=== PATIENT | male | born 1965 | race Caucasian/White ===

== ENCOUNTER 2018-01-02 16:01 | Emergency (ER) | payer OTHER ==
[~2018-01-02] VITALS: Ht 172.7 cm; Wt 86.4 kg
[~2018-01-02 16:01] MED LIST: DIVA500T52 PO; LURA40 PO; TRIH2TAB3 PO
[2018-01-02] MEDS ORDERED: PROP10TA73 PO (16:30)
[2018-01-02] MEDS ORDERED: AMLO-512 PO (16:30)
[2018-01-02] MEDS ORDERED: VENL50TA44 PO (16:30)
[2018-01-02 19:00] LABS: BASOPHILS % (AUTO) 0.6 % (0.0-2.0); EOSINOPHILS % (AUTO) 2.9 % (1.0-6.0); HEMATOCRIT 44.4 % (41-53); HEMOGLOBIN 15.6 g/dL (13.5-17.5); LYMPHOCYTES # (AUTO) 1.6 K/uL (1.0-4.8); LYMPHOCYTES % (AUTO) 16.4 % (22.0-44.0); MEAN CORPUSCULAR HEMOGLOBIN 31.1 pg (26.0-34.0); MEAN CORPUSCULAR HGB CONC 35.2 G/dL (31.0-37.0); MEAN CORPUSCULAR VOLUME 89 fL (80-100); MONOCYTES % (AUTO) 10.3 % (2.0-9.0); NEUTROPHILS # (AUTO) 6.9 K/uL (1.8-7.7); NEUTROPHILS % (AUTO) 69.8 % (40.0-70.0); PLATELET COUNT (AUTO) 251 K/uL (150-450); RED BLOOD CELL COUNT(AUTO) 5.02 MIL/uL (4.50-5.90); RED CELL DISTRIBUTION WIDTH 12.4 % (11.5-14.5)
[2018-01-02 19:08] LABS: ANION GAP 10 mmol/L (8-16); CALCIUM, TOTAL 8.5 mg/dL (8.8-10.5); CARBON DIOXIDE 27 mmol/L (22-29); CHLORIDE 100 mmol/L (98-107); GLOMERULAR FILTR. RATE CALC 58 mL/min (>60); GLUCOSE,RANDOM 121 mg/dL (70-110); POTASSIUM 4.1 mmol/L (3.5-5.1); SODIUM SERUM 137 mmol/L (136-145); UREA NITROGEN, BLOOD 20 mg/dL (7-18)
[2018-01-02 19:15] LABS: ALANINE AMINOTRANSFERASE 65 U/L (12-78); ALBUMIN 3.8 g/dL (3.4-5.0); ALKALINE PHOSPHATASE 90 U/L (46-116); ASPARTATE AMINOTRANSFERASE 59 U/L (15-37); BILIRUBIN,TOTAL 0.7 mg/dL (0.1-1.0); TOTAL PROTEIN, SERUM 7.5 g/dL (6.4-8.2)
[2018-01-02 22:08] LABS: AMPHET/METH SCREEN,URINE POSITIVE (NEGATIVE); BARBITURATE SCREEN, URINE NEGATIVE (NEGATIVE); BENZODIAZEPINES SCREEN,URINE NEGATIVE (NEGATIVE); CANNABINOID SCREEN,URINE NEGATIVE (NEGATIVE); COCAINE SCREEN,URINE NEGATIVE (NEGATIVE); METHADONE SCREEN, URINE NEGATIVE (NEGATIVE); OPIATE SCREEN,URINE NEGATIVE (NEGATIVE)
[2018-01-02 22:09] LABS: PHENCYCLIDINE SCREEN,URINE NEGATIVE (NEGATIVE)
[2018-01-03] MEDS ORDERED: ZIPRASIDONE HCL 20 MG CAPSULE PO ONE (02:00)
[2018-01-03] MEDS ORDERED: ZIPRASIDONE HCL 40 MG CAPSULE PO ONE (02:00)
[2018-01-03] MEDS: OLANZapine 5 MG RAPDIS TABLET PO ONE ×2 (02:14→02:19)
[2018-01-03] MEDS: VENLAFAXINE HCL 50 MG TABLET PO ONE ×2 (02:14→02:19)
[2018-01-03 03:27] VITALS: BP 129/73
== END 2018-01-03 03:47 | disposition home or self-care (01) ==
LOC: EMS 16:02
DX: F20.0 Paranoid schizophrenia (principal); F11.90 Opioid use, unspecified, uncomplicated; F14.90 Cocaine use, unspecified, uncomplicated; F12.90 Cannabis use, unspecified, uncomplicated; F15.90 Other stimulant use, unspecified, uncomplicated
CPT/HCPCS: 36415; 80053; 80307; 85025; 99284; G0480

== ENCOUNTER 2018-06-30 16:59 | Inpatient (IN) | payer MEDICAID ==
[~2018-06-30] VITALS: Ht 172.7 cm; Wt 86.8 kg
[~2018-06-30 16:59] MED LIST changes: +AMLO-512 PO; +PROP10TA73 PO; +VENL50TA44 PO
[2018-06-30 21:45] VITALS: BP 137/92
[2018-06-30] MEDS ORDERED: ZOLPIDEM TARTRATE 10 MG TABLET PO PRN (22:00)
[2018-06-30] MEDS ORDERED: HALOPERIDOL 5 MG TABLET PO PRN (22:00)
[2018-06-30] MEDS ORDERED: PNEUMOCOCCAL VACCINE POLYVALENT 0.5 ML VIAL [PPSV23] IM ONE (22:30)
[2018-07-01 00:13] VITALS: BP 119/82
[2018-07-01] MEDS ORDERED: CloNIDine HCL 0.1 MG TABLET PO PRN (06:45)
[2018-07-01] MEDS ORDERED: IBUPROFEN 400 MG TABLET PO PRN (06:45)
[2018-07-01] MEDS ORDERED: ONDANSETRON HCL 4 MG TABLET PO PRN (06:45)
[2018-07-01] MEDS ORDERED: ACETAMINOPHEN 325 MG TABLET PO PRN (06:45)
[2018-07-01] MEDS ORDERED: NICOTINE 14 MG/24 HOUR PATCH TD PRN (06:45)
[2018-07-01] MEDS ORDERED: ALBUTEROL SULFATE HFA 90 MCG/PUFF 8 GM INHALER IH PRN (06:45)
[2018-07-01] MEDS ORDERED: LOPERAMIDE HCL 2 MG CAPSULE PO PRN (06:45)
[2018-07-01] MEDS ORDERED: MAG HYDROX/AL HYDROX/SIMETH ES 30 ML SUSPENSION UDCUP PO PRN (06:45)
[2018-07-01] MEDS ORDERED: DOCUSATE SODIUM 100 MG CAPSULE PO PRN (06:45)
[2018-07-01] MEDS ORDERED: PETROLATUM,WHITE 71 GM JELLY TP PRN (06:45)
[2018-07-01] MEDS ORDERED: GuaiFENesin/D-METHORPHAN [SUGAR-FREE] 200-20MG/10 ML SYRUP UDCUP PO PRN (06:45)
[2018-07-01 07:31] LABS: BASOPHILS % (AUTO) 0.4 % (0.0-2.0); EOSINOPHILS % (AUTO) 2.5 % (1.0-6.0); HEMATOCRIT 43.1 % (41-53); LYMPHOCYTES # (AUTO) 1.6 K/uL (1.0-4.8); LYMPHOCYTES % (AUTO) 27.6 % (22.0-44.0); MEAN CORPUSCULAR HEMOGLOBIN 31.7 pg (26.0-34.0); MEAN CORPUSCULAR HGB CONC 34.7 G/dL (31.0-37.0); MEAN CORPUSCULAR VOLUME 91 fL (80-100); MONOCYTES # (AUTO) 0.7 K/uL (0.1-1.0); MONOCYTES % (AUTO) 11.9 % (2.0-9.0); NEUTROPHILS # (AUTO) 3.3 K/uL (1.8-7.7); NEUTROPHILS % (AUTO) 57.6 % (40.0-70.0); PLATELET COUNT (AUTO) 206 K/uL (150-450); RED BLOOD CELL COUNT(AUTO) 4.71 MIL/uL (4.50-5.90); RED CELL DISTRIBUTION WIDTH 12.7 % (11.5-14.5)
[2018-07-01 08:05] VITALS: BP 112/74
[2018-07-01 08:17] LABS: HEMOGLOBIN A1C 5.2 % (4.5-6.2)
[2018-07-01 08:18] LABS: ALANINE AMINOTRANSFERASE 34 U/L (12-78); ALBUMIN 3.7 g/dL (3.4-5.0); ALKALINE PHOSPHATASE 88 U/L (46-116); ANION GAP 5 mmol/L (8-16); ASPARTATE AMINOTRANSFERASE 34 U/L (15-37); BILIRUBIN,TOTAL 0.4 mg/dL (0.1-1.0); CALCIUM, TOTAL 8.7 mg/dL (8.8-10.5); CARBON DIOXIDE 31 mmol/L (22-29); CHLORIDE 105 mmol/L (98-107); CHOL/HDL RATIO 3.3 (4.2-7.3); CHOLESTEROL 130 mg/dL (131-200); CREATININE 1.24 mg/dL (0.60-1.30); FREE T4 (FREE THYROXINE) 0.95 ng/dL (0.76-1.46); GLOMERULAR FILTR. RATE CALC > 60 mL/min (>60); GLUCOSE,RANDOM 100 mg/dL (70-110); HDL CHOLESTEROL 39 mg/dL (40-60); LDL CHOL (CALC.) 77 mg/dL (0-130); POTASSIUM 4.4 mmol/L (3.5-5.1); SODIUM SERUM 141 mmol/L (136-145); THYROID STIMULATING HORMONE 1.75 uIU/mL (0.36-3.74); TOTAL PROTEIN, SERUM 6.3 g/dL (6.4-8.2); TRIGLYCERIDES 71 mg/dL (15-150); UREA NITROGEN, BLOOD 19 mg/dL (7-18)
[2018-07-01] MEDS: VENLAFAXINE HCL 150 MG ER CAPSULE PO SCH (12:00)
[2018-07-01 16:09] VITALS: BP 128/67
[2018-07-01] MEDS: DIVALPROEX SODIUM 500 MG ER TABLET PO SCH (17:08)
[2018-07-01] MEDS: LORazepam 2 MG TABLET PO PRN (17:08)
[2018-07-01] MEDS: ZIPRASIDONE HCL 40 MG CAPSULE PO SCH (17:08)
[2018-07-02 05:27] VITALS: BP 122/69
[2018-07-02] MEDS: ZIPRASIDONE HCL 40 MG CAPSULE PO SCH ×2 (06:36→16:25)
[2018-07-02 08:07] VITALS: BP 110/64
[2018-07-02] MEDS: VENLAFAXINE HCL 150 MG ER CAPSULE PO SCH (08:41)
[2018-07-02] MEDS: LORazepam 2 MG TABLET PO PRN ×2 (08:41→16:25)
[2018-07-02] MEDS: DIVALPROEX SODIUM 500 MG ER TABLET PO SCH ×2 (08:41→16:25)
[2018-07-02 16:02] VITALS: BP 126/69
[2018-07-03] MEDS: ZIPRASIDONE HCL 40 MG CAPSULE PO SCH (06:39)
[2018-07-03 07:09] VITALS: BP 122/75
[2018-07-03 08:01] VITALS: BP 138/81
[2018-07-03] MEDS: VENLAFAXINE HCL 150 MG ER CAPSULE PO SCH (09:00)
[2018-07-03] MEDS: DIVALPROEX SODIUM 500 MG ER TABLET PO SCH ×2 (09:00→17:00)
[2018-07-03] MEDS: MENTHOL/CAMPHOR/DIMETH/PHENOL 10 GM OINTMENT TP PRN (09:06)
[2018-07-03 16:02] VITALS: BP 124/73
[2018-07-03] MEDS: ZIPRASIDONE HCL 20 MG CAPSULE PO SCH (17:36)
[2018-07-04 05:22] VITALS: BP 122/76
[2018-07-04] MEDS: ZIPRASIDONE HCL 20 MG CAPSULE PO SCH ×2 (06:29→16:07)
[2018-07-04 08:08] LABS: BASOPHILS % (AUTO) 0.4 % (0.0-2.0); EOSINOPHILS % (AUTO) 2.2 % (1.0-6.0); HEMOGLOBIN 15.3 g/dL (13.5-17.5); LYMPHOCYTES # (AUTO) 2.2 K/uL (1.0-4.8); LYMPHOCYTES % (AUTO) 33.7 % (22.0-44.0); MEAN CORPUSCULAR HEMOGLOBIN 31.9 pg (26.0-34.0); MEAN CORPUSCULAR HGB CONC 34.7 G/dL (31.0-37.0); MEAN CORPUSCULAR VOLUME 92 fL (80-100); MONOCYTES # (AUTO) 0.4 K/uL (0.1-1.0); MONOCYTES % (AUTO) 6.7 % (2.0-9.0); NEUTROPHILS # (AUTO) 3.8 K/uL (1.8-7.7); PLATELET COUNT (AUTO) 231 K/uL (150-450); RED BLOOD CELL COUNT(AUTO) 4.79 MIL/uL (4.50-5.90); RED CELL DISTRIBUTION WIDTH 12.6 % (11.5-14.5)
[2018-07-04 08:22] LABS: ALANINE AMINOTRANSFERASE 27 U/L (12-78); ALBUMIN 3.5 g/dL (3.4-5.0); ALKALINE PHOSPHATASE 80 U/L (46-116); ANION GAP 3 mmol/L (8-16); ASPARTATE AMINOTRANSFERASE 24 U/L (15-37); BILIRUBIN,TOTAL 0.3 mg/dL (0.1-1.0); CALCIUM, TOTAL 8.3 mg/dL (8.8-10.5); CARBON DIOXIDE 34 mmol/L (22-29); CHLORIDE 106 mmol/L (98-107); CREATININE 1.17 mg/dL (0.60-1.30); GLOMERULAR FILTR. RATE CALC > 60 mL/min (>60); GLUCOSE,RANDOM 87 mg/dL (70-110); POTASSIUM 5.3 mmol/L (3.5-5.1); SODIUM SERUM 143 mmol/L (136-145); TOTAL PROTEIN, SERUM 6.5 g/dL (6.4-8.2); UREA NITROGEN, BLOOD 15 mg/dL (7-18); VALPROIC ACID < 3 mcg/mL (50-100)
[2018-07-04] MEDS: VENLAFAXINE HCL 75 MG ER CAPSULE PO SCH (08:38)
[2018-07-04] MEDS: DIVALPROEX SODIUM 500 MG ER TABLET PO SCH ×3 (08:49→16:11)
[2018-07-04 09:31] VITALS: BP 124/59
[2018-07-04] MEDS ORDERED: SODIUM POLYSTYRENE SULFONATE 15 GM/60 ML SUSPENSION BOTTLE PR ONE (12:30)
[2018-07-04 16:13] VITALS: BP 139/78
[2018-07-05 06:38] VITALS: BP 116/62
[2018-07-05] MEDS: ZIPRASIDONE HCL 20 MG CAPSULE PO SCH ×2 (07:05→17:02)
[2018-07-05 08:03] VITALS: BP 118/76
[2018-07-05] MEDS: DIVALPROEX SODIUM 500 MG ER TABLET PO SCH ×2 (08:10→17:00)
[2018-07-05] MEDS: VENLAFAXINE HCL 75 MG ER CAPSULE PO SCH (08:10)
[2018-07-05 08:36] LABS: CALCIUM, TOTAL 8.3 mg/dL (8.8-10.5); CREATININE 1.27 mg/dL (0.60-1.30); POTASSIUM 4.4 mmol/L (3.5-5.1)
[2018-07-05] MEDS: MENTHOL/CAMPHOR/DIMETH/PHENOL 10 GM OINTMENT TP PRN (09:40)
[2018-07-05 16:21] VITALS: BP 134/89
[2018-07-05] MEDS: LORazepam 2 MG TABLET PO PRN (17:02)
[2018-07-06] MEDS: ZIPRASIDONE HCL 20 MG CAPSULE PO SCH ×2 (06:43→16:07)
[2018-07-06 06:51] VITALS: BP 127/84
[2018-07-06 08:02] VITALS: BP 122/81
[2018-07-06] MEDS: VENLAFAXINE HCL 75 MG ER CAPSULE PO SCH (08:30)
[2018-07-06] MEDS: DIVALPROEX SODIUM 500 MG ER TABLET PO SCH ×2 (08:39→17:00)
[2018-07-06] MEDS: LORazepam 2 MG TABLET PO PRN (16:16)
[2018-07-06 16:22] VITALS: BP 140/95
[2018-07-07 05:58] VITALS: BP 120/62
[2018-07-07] MEDS: ZIPRASIDONE HCL 20 MG CAPSULE PO SCH ×2 (06:15→17:06)
[2018-07-07 08:02] VITALS: BP 132/70
[2018-07-07] MEDS: VENLAFAXINE HCL 75 MG ER CAPSULE PO SCH (08:23)
[2018-07-07] MEDS: DIVALPROEX SODIUM 500 MG ER TABLET PO SCH ×2 (08:36→17:00)
[2018-07-07 16:07] VITALS: BP 135/74
[2018-07-07] MEDS: LORazepam 2 MG TABLET PO PRN (17:06)
[2018-07-08 06:42] VITALS: BP 128/77
[2018-07-08] MEDS: ZIPRASIDONE HCL 20 MG CAPSULE PO SCH (06:44)
[2018-07-08 08:02] VITALS: BP 119/65
[2018-07-08] MEDS: VENLAFAXINE HCL 75 MG ER CAPSULE PO SCH (08:31)
[2018-07-08] MEDS: DIVALPROEX SODIUM 500 MG ER TABLET PO SCH (08:31)
[2018-07-08] MEDS ORDERED: VENL75CA55 PO ×2 (09:23→09:39)
[2018-07-08] MEDS ORDERED: ZIPR20CA2 PO (09:23)
[2018-07-08] MEDS ORDERED: ZIPR60CA2 PO (09:40)
== END 2018-07-08 13:36 | disposition home or self-care (01) | DRG 750 ==
LOC: B3A 22:01
PROVIDERS: ADMIT Psychiatry & Neurology Psychiatry; ATTEND Psychiatry & Neurology Psychiatry
DX: F25.0 Schizoaffective disorder, bipolar type (principal); E87.5 Hyperkalemia; B18.2 Chronic viral hepatitis C; I10 Essential (primary) hypertension; K59.00 Constipation, unspecified; F19.90 Other psychoactive substance use, unspecified, uncomplicated; Z79.899 Other long term (current) drug therapy; F10.10 Alcohol abuse, uncomplicated; Z71.41 Alcohol abuse counseling and surveillance of alcoholic; Z91.19 Patient's noncompliance with other medical treatment and regimen; F17.200 Nicotine dependence, unspecified, uncomplicated
CPT/HCPCS: 83036; 84439; 84443; 87081; 90686

== ENCOUNTER 2018-12-16 09:12 | Emergency (ER) | payer MEDICAID, OTHER ==
[~2018-12-16] VITALS: Ht 172.7 cm; Wt 93.6 kg
[~2018-12-16 09:12] MED LIST changes: -AMLO-512 PO; -DIVA500T52 PO; -LURA40 PO; -PROP10TA73 PO; -TRIH2TAB3 PO; -VENL50TA44 PO; +VENL75CA55 PO; +ZIPR20CA2 PO; +ZIPR60CA2 PO
[2018-12-16] MEDS ORDERED: SODIUM CHLORIDE 0.9% 1,000 ML IV ONE (10:00)
[2018-12-16 11:26] VITALS: BP 152/78
== END 2018-12-16 11:32 | disposition home or self-care (01) ==
LOC: EMS 09:14
DX: R76.11 Nonspecific reaction to tuberculin skin test without active tuberculosis (principal); F20.9 Schizophrenia, unspecified; F19.20 Other psychoactive substance dependence, uncomplicated; F12.90 Cannabis use, unspecified, uncomplicated; F14.90 Cocaine use, unspecified, uncomplicated; F11.90 Opioid use, unspecified, uncomplicated

== ENCOUNTER 2019-09-21 15:36 | Inpatient (IN) | payer MEDICAID, OTHER ==
[~2019-09-21] VITALS: Ht 172.7 cm; Wt 84.3 kg
[~2019-09-21 15:36] MED LIST changes: -ZIPR60CA2 PO
[2019-09-21] MEDS ORDERED: HALOPERIDOL LACTATE 5 MG/ML VIAL IM ONE (16:30)
[2019-09-21] MEDS ORDERED: DiphenhydrAMINE HCL 50 MG/ML VIAL IM ONE (16:30)
[2019-09-21] MEDS ORDERED: LORazepam 2 MG/ML VIAL IM ONE (16:30)
[2019-09-21 17:31] LABS: BASOPHILS % (AUTO) 0.4 % (0.0-2.0); EOSINOPHILS % (AUTO) 0 % (1.0-6.0); HEMATOCRIT 42.9 % (41-53); HEMOGLOBIN 14.5 g/dL (13.5-17.5); LYMPHOCYTES # (AUTO) 0.7 K/uL (1.0-4.8); LYMPHOCYTES % (AUTO) 6.7 % (22.0-44.0); MEAN CORPUSCULAR HGB CONC 33.7 G/dL (31.0-37.0); MEAN CORPUSCULAR VOLUME 92 fL (80-100); MONOCYTES # (AUTO) 0.2 K/uL (0.1-1.0); MONOCYTES % (AUTO) 1.9 % (2.0-9.0); NEUTROPHILS # (AUTO) 9.3 K/uL (1.8-7.7); PLATELET COUNT (AUTO) 197 K/uL (150-450); RED BLOOD CELL COUNT(AUTO) 4.67 MIL/uL (4.50-5.90); RED CELL DISTRIBUTION WIDTH 13.2 % (11.5-14.5)
[2019-09-21 17:41] LABS: ANION GAP 9 mmol/L (8-16); CALCIUM, TOTAL 7.9 mg/dL (8.8-10.5); CARBON DIOXIDE 26 mmol/L (22-29); CHLORIDE 101 mmol/L (98-107); CREATININE 1.02 mg/dL (0.60-1.30); GLOMERULAR FILTR. RATE CALC > 60 mL/min (>60); GLUCOSE,RANDOM 120 mg/dL (70-110); POTASSIUM 3.7 mmol/L (3.5-5.1); SODIUM SERUM 136 mmol/L (136-145); UREA NITROGEN, BLOOD 15 mg/dL (7-18)
[2019-09-21 17:47] LABS: ALANINE AMINOTRANSFERASE 39 U/L (12-78); ALBUMIN 3.6 g/dL (3.4-5.0); ALKALINE PHOSPHATASE 84 U/L (46-116); ASPARTATE AMINOTRANSFERASE 32 U/L (15-37); BILIRUBIN,TOTAL 0.3 mg/dL (0.1-1.0); TOTAL PROTEIN, SERUM 6.2 g/dL (6.4-8.2)
[2019-09-21 18:16] LABS: AMPHET/METH SCREEN,URINE NEGATIVE (NEGATIVE); BARBITURATE SCREEN, URINE NEGATIVE (NEGATIVE); BENZODIAZEPINES SCREEN,URINE NEGATIVE (NEGATIVE); CANNABINOID SCREEN,URINE NEGATIVE (NEGATIVE); COCAINE SCREEN,URINE NEGATIVE (NEGATIVE); METHADONE SCREEN, URINE NEGATIVE (NEGATIVE); OPIATE SCREEN,URINE NEGATIVE (NEGATIVE); PHENCYCLIDINE SCREEN,URINE NEGATIVE (NEGATIVE)
[2019-09-21] MEDS ORDERED: LORazepam 2 MG TABLET PO PRN (20:15)
[2019-09-21] MEDS ORDERED: HALOPERIDOL 5 MG TABLET PO PRN (20:15)
[2019-09-21] MEDS ORDERED: ZOLPIDEM TARTRATE 10 MG TABLET PO PRN (20:15)
[2019-09-21] MEDS ORDERED: ZIPR60CA2 PO (20:21)
[2019-09-22 00:23] VITALS: BP 129/76
[2019-09-22] MEDS ORDERED: INFLUENZA VIRUS VACCINE QVS 2019-20 (3YR+)/PF 60 MCG/0.5 ML SYRINGE IM ONE (01:30)
[2019-09-22 08:27] LABS: CHOL/HDL RATIO 3.4 (4.2-7.3)
[2019-09-22 11:00] VITALS: BP 124/86
[2019-09-22 16:30] VITALS: BP_SYST 122; BP_SYST 128; BP_DIAS 86
[2019-09-22 21:16] VITALS: BP 123/76
[2019-09-23 07:05] VITALS: BP 124/78
[2019-09-23 08:00] VITALS: BP 126/75
[2019-09-23] MEDS: VENLAFAXINE HCL 75 MG ER CAPSULE PO SCH (11:27)
[2019-09-23] MEDS: BACITRACIN 28.4 GM OINTMENT TP SCH (11:27)
[2019-09-23] MEDS: ZIPRASIDONE HCL 60 MG CAPSULE PO SCH (16:21)
[2019-09-23 19:43] VITALS: BP 126/77
[2019-09-23 19:45] VITALS: BP 116/60
[2019-09-24] MEDS: ZIPRASIDONE HCL 60 MG CAPSULE PO SCH ×2 (06:33→16:35)
[2019-09-24] MEDS: BACITRACIN 28.4 GM OINTMENT TP SCH (08:24)
[2019-09-24] MEDS: VENLAFAXINE HCL 75 MG ER CAPSULE PO SCH (08:24)
[2019-09-24 09:34] VITALS: BP 111/60
[2019-09-24 16:35] VITALS: BP 160/99
[2019-09-25] MEDS: ZIPRASIDONE HCL 60 MG CAPSULE PO SCH ×2 (07:12→16:24)
[2019-09-25] MEDS: VENLAFAXINE HCL 75 MG ER CAPSULE PO SCH (08:25)
[2019-09-25] MEDS: BACITRACIN 28.4 GM OINTMENT TP SCH (08:25)
[2019-09-25 08:32] VITALS: BP 148/83
[2019-09-25 17:13] VITALS: BP 123/73
[2019-09-26] MEDS: ZIPRASIDONE HCL 60 MG CAPSULE PO SCH ×2 (06:58→16:31)
[2019-09-26 08:00] VITALS: BP 144/80
[2019-09-26] MEDS: VENLAFAXINE HCL 75 MG ER CAPSULE PO SCH (08:33)
[2019-09-26] MEDS: BACITRACIN 28.4 GM OINTMENT TP SCH (08:40)
[2019-09-26 16:38] VITALS: BP 142/98
[2019-09-27] MEDS: ZIPRASIDONE HCL 60 MG CAPSULE PO SCH ×2 (07:08→16:48)
[2019-09-27 08:32] VITALS: BP 142/76
[2019-09-27] MEDS: VENLAFAXINE HCL 75 MG ER CAPSULE PO SCH (08:47)
[2019-09-27] MEDS: BACITRACIN 28.4 GM OINTMENT TP SCH (08:47)
[2019-09-27 17:59] VITALS: BP 135/91
[2019-09-28] MEDS: ZIPRASIDONE HCL 60 MG CAPSULE PO SCH (07:19)
[2019-09-28 08:18] VITALS: BP 153/82
[2019-09-28] MEDS: VENLAFAXINE HCL 75 MG ER CAPSULE PO SCH (08:19)
[2019-09-28] MEDS: BACITRACIN 28.4 GM OINTMENT TP SCH (08:19)
== END 2019-09-28 14:40 | disposition home or self-care (01) | DRG 885 ==
LOC: EMS 15:36 → 3EC 23:30
PROVIDERS: ADMIT Psychiatry & Neurology Psychiatry; ATTEND Psychiatry & Neurology Child & Adolescent Psychiatry
DX: F20.0 Paranoid schizophrenia (principal); R45.851 Suicidal ideations; F10.129 Alcohol abuse with intoxication, unspecified; F43.10 Post-traumatic stress disorder, unspecified; K21.9 Gastro-esophageal reflux disease without esophagitis; F14.90 Cocaine use, unspecified, uncomplicated; F12.90 Cannabis use, unspecified, uncomplicated; F11.90 Opioid use, unspecified, uncomplicated; F15.10 Other stimulant abuse, uncomplicated; Y90.7 Blood alcohol level of 200-239 mg/100 ml; X58.XXXA Exposure to other specified factors, initial encounter; Z87.891 Personal history of nicotine dependence; Z28.21 Immunization not carried out because of patient refusal
CPT/HCPCS: 99291; G0480; J1200; J1630; J2060

== ENCOUNTER 2019-09-30 20:32 | Inpatient (IN) | payer MEDICAID, OTHER ==
[~2019-09-30] VITALS: Ht 172.7 cm; Wt 83.0 kg
[2019-09-30] MEDS ORDERED: DiphenhydrAMINE HCL 50 MG/ML VIAL IM ONE (21:15)
[2019-09-30] MEDS ORDERED: HALOPERIDOL LACTATE 5 MG/ML VIAL IM ONE (21:15)
[2019-09-30] MEDS ORDERED: LORazepam 2 MG/ML VIAL IM ONE (21:15)
[2019-09-30 21:23] LABS: BASOPHILS % (AUTO) 0.7 % (0.0-2.0); EOSINOPHILS % (AUTO) 0.2 % (1.0-6.0); HEMATOCRIT 47.3 % (41-53); HEMOGLOBIN 15.7 g/dL (13.5-17.5); LYMPHOCYTES # (AUTO) 2.2 K/uL (1.0-4.8); LYMPHOCYTES % (AUTO) 18.1 % (22.0-44.0); MEAN CORPUSCULAR HEMOGLOBIN 30.9 pg (26.0-34.0); MEAN CORPUSCULAR HGB CONC 33.2 G/dL (31.0-37.0); MEAN CORPUSCULAR VOLUME 93 fL (80-100); MONOCYTES # (AUTO) 1.2 K/uL (0.1-1.0); MONOCYTES % (AUTO) 9.6 % (2.0-9.0); NEUTROPHILS # (AUTO) 8.6 K/uL (1.8-7.7); NEUTROPHILS % (AUTO) 71.4 % (40.0-70.0); PLATELET COUNT (AUTO) 220 K/uL (150-450); RED BLOOD CELL COUNT(AUTO) 5.08 MIL/uL (4.50-5.90); RED CELL DISTRIBUTION WIDTH 13.3 % (11.5-14.5)
[2019-09-30 21:32] LABS: ANION GAP 6 mmol/L (8-16); CALCIUM, TOTAL 9.3 mg/dL (8.8-10.5); CARBON DIOXIDE 29 mmol/L (22-29); CHLORIDE 101 mmol/L (98-107); CREATININE 1.33 mg/dL (0.60-1.30); GLOMERULAR FILTR. RATE CALC 56 mL/min (>60); GLUCOSE,RANDOM 100 mg/dL (70-110); SODIUM SERUM 136 mmol/L (136-145); UREA NITROGEN, BLOOD 40 mg/dL (7-18)
[2019-09-30 21:38] LABS: ALANINE AMINOTRANSFERASE 66 U/L (12-78); ALBUMIN 4.4 g/dL (3.4-5.0); ALKALINE PHOSPHATASE 105 U/L (46-116); ASPARTATE AMINOTRANSFERASE 176 U/L (15-37); BILIRUBIN,TOTAL 1.2 mg/dL (0.1-1.0); TOTAL PROTEIN, SERUM 7.7 g/dL (6.4-8.2)
[2019-09-30] MEDS ORDERED: ZOLPIDEM TARTRATE 10 MG TABLET PO PRN (22:30)
[2019-09-30] MEDS ORDERED: LORazepam 2 MG TABLET PO PRN (22:30)
[2019-09-30] MEDS ORDERED: HALOPERIDOL 5 MG TABLET PO PRN (22:30)
[2019-09-30 23:07] LABS: AMPHET/METH SCREEN,URINE POSITIVE (NEGATIVE); BARBITURATE SCREEN, URINE NEGATIVE (NEGATIVE); BENZODIAZEPINES SCREEN,URINE NEGATIVE (NEGATIVE); CANNABINOID SCREEN,URINE NEGATIVE (NEGATIVE); COCAINE SCREEN,URINE NEGATIVE (NEGATIVE); METHADONE SCREEN, URINE NEGATIVE (NEGATIVE); OPIATE SCREEN,URINE NEGATIVE (NEGATIVE)
[2019-09-30 23:08] LABS: PHENCYCLIDINE SCREEN,URINE NEGATIVE (NEGATIVE)
[2019-10-01 06:17] LABS: CHOLESTEROL 204 mg/dL (131-200); HDL CHOLESTEROL 68 mg/dL (40-60); LDL CHOL (CALC.) 122 mg/dL (0-130); TRIGLYCERIDES 70 mg/dL (15-150)
[2019-10-01 06:27] LABS: APPEARANCE,URINE TURBID (CLEAR); BILIRUBIN,URINE NEGATIVE (NEGATIVE); GLUCOSE, URINE (UA) NEGATIVE (NEGATIVE); KETONES,URINE TRACE mg/dL (NEGATIVE); LEUKOCYTE ESTERASE ,URINE NEGATIVE (NEGATIVE); NITRATE,URINE NEGATIVE (NEGATIVE); OCCULT BLOOD,URINE NEGATIVE (NEGATIVE); PH,URINE 5.5 (5.0-8.0); PROTEIN,URINE NEGATIVE (NEGATIVE); UROBILINOGEN,URINE 0.2 mg/dL (<=1.0)
[2019-10-01 09:34] VITALS: BP 142/79
[2019-10-01] MEDS ORDERED: MAG HYDROX/AL HYDROX/SIMETH ES 30 ML SUSPENSION UDCUP PO PRN (11:30)
[2019-10-01] MEDS ORDERED: LOPERAMIDE HCL 2 MG CAPSULE PO PRN (11:30)
[2019-10-01] MEDS ORDERED: DOCUSATE SODIUM 100 MG CAPSULE PO PRN (11:30)
[2019-10-01] MEDS ORDERED: MAGNESIUM HYDROXIDE SUSPENSION 30 ML UDCUP PO PRN (11:30)
[2019-10-01] MEDS ORDERED: CloNIDine HCL 0.1 MG TABLET PO PRN (11:30)
[2019-10-01] MEDS ORDERED: ONDANSETRON HCL 4 MG TABLET PO PRN (11:30)
[2019-10-01] MEDS ORDERED: ALBUTEROL SULFATE HFA 90 MCG/PUFF 8 GM INHALER IH PRN (11:30)
[2019-10-01] MEDS ORDERED: ACETAMINOPHEN 325 MG TABLET PO PRN (11:30)
[2019-10-01] MEDS ORDERED: PETROLATUM,WHITE 28 GM JELLY TP PRN (11:30)
[2019-10-01] MEDS ORDERED: GuaiFENesin/D-METHORPHAN [SUGAR-FREE] 200-20MG/10 ML SYRUP UDCUP PO PRN (11:30)
[2019-10-01] MEDS ORDERED: NICOTINE 14 MG/24 HOUR PATCH TD PRN (11:30)
[2019-10-01] MEDS ORDERED: IBUPROFEN 400 MG TABLET PO PRN (11:30)
[2019-10-01] MEDS: VENLAFAXINE HCL 75 MG ER CAPSULE PO SCH (12:05)
[2019-10-01 16:08] VITALS: BP 134/76
[2019-10-01] MEDS: ZIPRASIDONE HCL 60 MG CAPSULE PO SCH (17:13)
[2019-10-02] MEDS: ZIPRASIDONE HCL 60 MG CAPSULE PO SCH ×2 (07:08→16:21)
[2019-10-02] MEDS: VENLAFAXINE HCL 75 MG ER CAPSULE PO SCH (08:32)
[2019-10-02 09:23] VITALS: BP 128/75
[2019-10-02 17:04] VITALS: BP 122/79
[2019-10-03] MEDS: ZIPRASIDONE HCL 60 MG CAPSULE PO SCH ×2 (06:39→16:52)
[2019-10-03] MEDS: VENLAFAXINE HCL 75 MG ER CAPSULE PO SCH (08:50)
[2019-10-03 12:42] VITALS: BP 108/67
[2019-10-03 20:32] VITALS: BP 138/83
[2019-10-04] MEDS: ZIPRASIDONE HCL 60 MG CAPSULE PO SCH ×2 (07:11→16:50)
[2019-10-04] MEDS: VENLAFAXINE HCL 75 MG ER CAPSULE PO SCH (08:06)
[2019-10-04 09:15] VITALS: BP 152/98
[2019-10-04 21:30] VITALS: BP 148/98
[2019-10-05] MEDS: ZIPRASIDONE HCL 60 MG CAPSULE PO SCH ×2 (06:34→17:40)
[2019-10-05 08:15] VITALS: BP 113/72
[2019-10-05] MEDS: VENLAFAXINE HCL 75 MG ER CAPSULE PO SCH (08:46)
[2019-10-05 16:41] VITALS: BP 141/87
[2019-10-06] MEDS: ZIPRASIDONE HCL 60 MG CAPSULE PO SCH ×2 (06:55→17:37)
[2019-10-06 08:00] VITALS: BP 140/66
[2019-10-06] MEDS: VENLAFAXINE HCL 75 MG ER CAPSULE PO SCH (09:25)
[2019-10-06 17:22] VITALS: BP 147/71
[2019-10-07 06:15] VITALS: BP 139/91
[2019-10-07] MEDS: ZIPRASIDONE HCL 60 MG CAPSULE PO SCH ×2 (06:47→16:30)
[2019-10-07] MEDS: VENLAFAXINE HCL 75 MG ER CAPSULE PO SCH (08:28)
[2019-10-07 09:30] VITALS: BP 124/70
[2019-10-07 16:00] VITALS: BP 126/97
[2019-10-08] MEDS: ZIPRASIDONE HCL 60 MG CAPSULE PO SCH ×2 (06:29→16:30)
[2019-10-08] MEDS: VENLAFAXINE HCL 75 MG ER CAPSULE PO SCH (08:28)
[2019-10-08 08:30] VITALS: BP 129/77
[2019-10-08 19:18] VITALS: BP 159/87
[2019-10-09] MEDS: ZIPRASIDONE HCL 60 MG CAPSULE PO SCH ×2 (06:57→17:21)
[2019-10-09] MEDS: VENLAFAXINE HCL 75 MG ER CAPSULE PO SCH (08:00)
[2019-10-09 08:31] VITALS: BP 119/68
[2019-10-09 16:25] VITALS: BP 137/73
[2019-10-10 06:00] VITALS: BP 138/86
[2019-10-10] MEDS: ZIPRASIDONE HCL 60 MG CAPSULE PO SCH ×2 (06:36→16:25)
[2019-10-10] MEDS: VENLAFAXINE HCL 75 MG ER CAPSULE PO SCH (08:03)
[2019-10-10 08:23] VITALS: BP 145/87
[2019-10-10 16:45] VITALS: BP 124/76
[2019-10-11] MEDS: ZIPRASIDONE HCL 60 MG CAPSULE PO SCH (06:38)
[2019-10-11 06:52] LABS: BASOPHILS % (AUTO) 0.5 % (0.0-2.0); EOSINOPHILS % (AUTO) 2.2 % (1.0-6.0); HEMATOCRIT 47.1 % (41-53); HEMOGLOBIN 16.2 g/dL (13.5-17.5); LYMPHOCYTES # (AUTO) 1.6 K/uL (1.0-4.8); LYMPHOCYTES % (AUTO) 26.8 % (22.0-44.0); MEAN CORPUSCULAR HEMOGLOBIN 31.8 pg (26.0-34.0); MEAN CORPUSCULAR HGB CONC 34.3 G/dL (31.0-37.0); MEAN CORPUSCULAR VOLUME 93 fL (80-100); MONOCYTES # (AUTO) 0.5 K/uL (0.1-1.0); MONOCYTES % (AUTO) 8.1 % (2.0-9.0); NEUTROPHILS # (AUTO) 3.8 K/uL (1.8-7.7); NEUTROPHILS % (AUTO) 62.4 % (40.0-70.0); PLATELET COUNT (AUTO) 231 K/uL (150-450); RED CELL DISTRIBUTION WIDTH 13.1 % (11.5-14.5)
[2019-10-11] MEDS: VENLAFAXINE HCL 75 MG ER CAPSULE PO SCH (08:41)
[2019-10-11 08:44] VITALS: BP 129/79
[2019-10-11] MEDS ORDERED: ZIPR60CA2 PO (13:56)
[2019-10-11] MEDS ORDERED: VENL75CA55 PO (13:56)
== END 2019-10-11 16:00 | disposition home or self-care (01) | DRG 885 ==
LOC: EMS 20:32 → 3EC 10-01 08:46 → 3EI 10-05 16:45
PROVIDERS: ADMIT Psychiatry & Neurology Child & Adolescent Psychiatry; ATTEND Psychiatry & Neurology Child & Adolescent Psychiatry
DX: F20.0 Paranoid schizophrenia (principal); N17.9 Acute kidney failure, unspecified; F43.10 Post-traumatic stress disorder, unspecified; I10 Essential (primary) hypertension; K21.9 Gastro-esophageal reflux disease without esophagitis; F15.10 Other stimulant abuse, uncomplicated; F10.10 Alcohol abuse, uncomplicated; E78.5 Hyperlipidemia, unspecified; D72.829 Elevated white blood cell count, unspecified; R45.850 Homicidal ideations; Z91.14 Patient's other noncompliance with medication regimen; Z59.0 Homelessness; F12.90 Cannabis use, unspecified, uncomplicated; F11.90 Opioid use, unspecified, uncomplicated; F14.90 Cocaine use, unspecified, uncomplicated
CPT/HCPCS: 87081; G0480; J1200; J1630; J2060

== ENCOUNTER 2020-02-05 17:15 | Emergency (ER) | payer MEDICAID, OTHER ==
[~2020-02-05] VITALS: Ht 172.7 cm; Wt 77.3 kg
[~2020-02-05 17:15] MED LIST changes: -ZIPR20CA2 PO; +ZIPR60CA2 PO
[2020-02-05 17:29] VITALS: BP 184/98
[2020-02-05] MEDS ORDERED: AMOX TR/POT CLAV 500 MG/125 MG TABLET PO ONE (17:45)
[2020-02-05] MEDS ORDERED: PERTUSS(ACELL),DIPH,TET VAC/PF 0.5 ML VIAL IM ONE (17:45)
== END 2020-02-05 18:38 | disposition home or self-care (01) ==
LOC: EMS 17:15
DX: S51.851A Open bite of right forearm, initial encounter (principal); F20.9 Schizophrenia, unspecified; F14.90 Cocaine use, unspecified, uncomplicated; F11.90 Opioid use, unspecified, uncomplicated; F12.90 Cannabis use, unspecified, uncomplicated; F15.90 Other stimulant use, unspecified, uncomplicated; Z79.899 Other long term (current) drug therapy; W54.0XXA Bitten by dog, initial encounter; Y93.89 Activity, other specified; Y92.488 Other paved roadways as the place of occurrence of the external cause; Y99.8 Other external cause status
CPT/HCPCS: 90471; 90715

== ENCOUNTER 2021-11-13 08:34 | Emergency (ER) | payer MEDICAID, OTHER ==
[~2021-11-13] VITALS: Ht 172.7 cm; Wt 88.6 kg
[2021-11-13 09:24] VITALS: BP 143/90
[2021-11-13] MEDS ORDERED: ACETAMINOPHEN 500 MG TABLET PO ONE (09:45)
[2021-11-13] MEDS ORDERED: TraMADol HCL 50 MG TABLET PO ONE (09:45)
[2021-11-13] MEDS ORDERED: KETOROLAC TROMETHAMINE 60 MG/2 ML VIAL IM ONE (09:45)
[2021-11-13] MEDS ORDERED: BACLOFEN 10 MG TABLET PO ONE (09:45)
[2021-11-13] MEDS ORDERED: LIDOCAINE 5% TRANSDERMAL PATCH TD ONE (10:00)
== END 2021-11-13 10:34 | disposition home or self-care (01) ==
LOC: EMS 08:36
DX: S13.4XXA Sprain of ligaments of cervical spine, initial encounter (principal); I10 Essential (primary) hypertension; F20.9 Schizophrenia, unspecified; F20.0 Paranoid schizophrenia; Z86.59 Personal history of other mental and behavioral disorders; Z87.09 Personal history of other diseases of the respiratory system; X58.XXXA Exposure to other specified factors, initial encounter; Y93.89 Activity, other specified; Y92.89 Other specified places as the place of occurrence of the external cause; Y99.8 Other external cause status
CPT/HCPCS: 96372; 99284; J1885

== ENCOUNTER 2022-03-11 11:53 | Emergency (ER) | payer MEDICAID, OTHER ==
[~2022-03-11] VITALS: Ht 172.7 cm; Wt 95.5 kg
[2022-03-11 12:52] VITALS: BP 161/88
== END 2022-03-11 13:23 | disposition home or self-care (01) ==
LOC: EMS 12:07
DX: L97.319 Non-pressure chronic ulcer of right ankle with unspecified severity (principal); I10 Essential (primary) hypertension; F20.9 Schizophrenia, unspecified; F22 Delusional disorders; Z86.59 Personal history of other mental and behavioral disorders; Z86.19 Personal history of other infectious and parasitic diseases
CPT/HCPCS: 99281; Z7502

== ENCOUNTER 2022-05-04 15:02 | Emergency (ER) | payer OTHER ==
[~2022-05-04] VITALS: Ht 172.7 cm; Wt 90.9 kg
[2022-05-04 16:10] LABS: BASOPHILS % (AUTO) 0.9 % (0.0-2.0); EOSINOPHILS % (AUTO) 0 % (1.0-6.0); HEMATOCRIT 46.1 % (41-53); HEMOGLOBIN 15.3 g/dL (13.5-17.5); LYMPHOCYTES # (AUTO) 1.6 K/uL (1.0-4.8); LYMPHOCYTES % (AUTO) 11.3 % (22.0-44.0); MEAN CORPUSCULAR HEMOGLOBIN 30.7 pg (26.0-34.0); MEAN CORPUSCULAR HGB CONC 33.1 G/dL (31.0-37.0); MEAN CORPUSCULAR VOLUME 93 fL (80-100); MONOCYTES # (AUTO) 1.2 K/uL (0.1-1.0); MONOCYTES % (AUTO) 8.9 % (2.0-9.0); NEUTROPHILS % (AUTO) 78.9 % (40.0-70.0); PLATELET COUNT (AUTO) 233 K/uL (150-450); RED BLOOD CELL COUNT(AUTO) 4.98 MIL/uL (4.50-5.90); RED CELL DISTRIBUTION WIDTH 12.9 % (11.5-14.5)
[2022-05-04 16:17] LABS: ANION GAP 12 mmol/L (8-16); CARBON DIOXIDE 27 mmol/L (22-29); CHLORIDE 98 mmol/L (98-107); GLOMERULAR FILTR. RATE CALC 53 mL/min (>60); GLUCOSE,RANDOM 123 mg/dL (70-110); POTASSIUM 3.9 mmol/L (3.5-5.1); SODIUM SERUM 137 mmol/L (136-145); UREA NITROGEN, BLOOD 43 mg/dL (7-18)
[2022-05-04 16:23] LABS: ALANINE AMINOTRANSFERASE 88 U/L (12-78); ALBUMIN 4.8 g/dL (3.4-5.0); ALKALINE PHOSPHATASE 75 U/L (46-116); ASPARTATE AMINOTRANSFERASE 291 U/L (15-37); BILIRUBIN,TOTAL 1.9 mg/dL (0.1-1.0); TOTAL PROTEIN, SERUM 8.1 g/dL (6.4-8.2)
[2022-05-04 17:57] VITALS: BP 145/74
== END 2022-05-04 18:25 | disposition home or self-care (01) ==
LOC: EMS 15:02
DX: F20.9 Schizophrenia, unspecified (principal); I10 Essential (primary) hypertension; F22 Delusional disorders; Z86.59 Personal history of other mental and behavioral disorders; Z87.09 Personal history of other diseases of the respiratory system
CPT/HCPCS: 99284; 80053; 85025; 36415; G0480